=== PATIENT | male | born 1975 | race Caucasian/White ===

== ENCOUNTER → 2020-06-01 | Outpatient (CLI) | payer OTHER ==
--- NOTE | 2020-06-02 15:29 | MRI ---
EXAM DESCRIPTION: Cervical Spine: MRI. CLINICAL HISTORY: 45 years Male RADICULOPATHY COMPARISON: Cervical spine radiographs May 22. TECHNIQUE: Multiplanar, high-field MRI, multiple sequences, non-contrast Cervical spine. FINDINGS: C4-C5: Minimal disc desiccation and minimal disc space loss. Small left uncinate spur. Mild to moderate left neural foraminal narrowing. Disc bulge into the right neural foramen which is minimally narrowed. Canal is patent. Facet joints unremarkable. C5-C6: Disc desiccation and minimal disc space loss. Minimal anterior bulging and posterior bulging. Bilateral uncinate spurs larger on the left with hypertrophic endplate changes bilaterally. Mild to moderate left neural foraminal narrowing and right neuroforamen patent. Mild canal narrowing. C6-C7: Disc desiccation and moderate disc space loss. Bilateral endplate reactive changes are mild with anterior disc bulge and posterior broad-based bulge abutting the cord. Bilateral uncinate spurs larger on the right. Moderate canal narrowing. Mild right neural foraminal stenosis. Moderate left neural foraminal narrowing. Facet joints are unremarkable. C2-C3ZZ: Minimal endplate reactive changes superior and inferior. Mild disc desiccation with no bulging. Facets are negative. Canal and neural foramina are patent. Normal signal in the C3-4 disc, T1-T2 disc, and C7-T1 disc with no bulging. Disc spaces preserved. Canal and neural foramina are patent. Facet joints are negative. Spinal alignment upper cervical spine is slightly straightened.. No cord compression or cord edema. Atlantoaxial joint negative.. Base of the cerebellar tonsils is above the foramen magnum. Paravertebral soft tissues unremarkable.. Vertebral bodies are not compressed at any level. Otherwise normal marrow signal in the remaining vertebral bodies and the posterior elements. IMPRESSION: 1. C6-C7 disc desiccation and spondylosis. Moderate canal narrowing and right neural foraminal stenosis. Correlate for compromise radiculopathy at C7. 2. Disc desiccation and uncinate spurs C4-5 and C5-6 with canal and neural foraminal narrowing. Also mild spondylosis at the C3-C3 level. Electronically signed by: Nick Lemon MD 06/02/2020 3:27 PM CDT
== END ==
LOC: MRI 11:00
PROVIDERS: ATTEND Nurse Practitioner Family
DX: M47.22 Other spondylosis with radiculopathy, cervical region (principal); M50.323 Other cervical disc degeneration at C6-C7 level; M48.02 Spinal stenosis, cervical region; M25.78 Osteophyte, vertebrae